=== PATIENT | male | born 1955 | race Caucasian/White ===

== ENCOUNTER 2018-08-17 11:20 | Day surgery (SDC) | payer MEDICARE, OTHER ==
[2018-07-27 10:47] LABS: HEMATOCRIT 42.4 % (37.9-51.0); MEAN CORPUSCULAR HEMOGLOBIN 26.5 pg (27.0-33.4); MEAN CORPUSCULAR HGB CONC 32.9 g/dL (32.0-36.0); MEAN CORPUSCULAR VOLUME 81 fl (80-97); PLATELET COUNT 260 10^3/uL (150-450); RED BLOOD COUNT 5.27 10^6/uL (4.35-5.55); RED CELL DISTRIBUTION WIDTH 15.8 % (11.5-14.0); WHITE BLOOD COUNT 10.7 10^3/uL (4.0-10.5)
[2018-07-27 10:52] LABS: APPEARANCE,URINE CLOUDY; BILIRUBIN,URINE NEGATIVE (NEGATIVE); COLOR,URINE YELLOW; GLUCOSE, URINE 50 mg/dL (NEGATIVE); KETONES,URINE NEGATIVE (NEGATIVE); LEUKOCYTE ESTERASE,URINE NEGATIVE (NEGATIVE); NITRITE,URINE NEGATIVE (NEGATIVE); PROTEIN,URINE NEGATIVE (NEGATIVE); URINE SPECIFIC GRAVITY 1.008; UROBILINOGEN,URINE NEGATIVE mg/dL (<2.0)
[2018-07-27 11:20] LABS: INTERNATIONAL RATION (INR) 0.94; PROTHROMBIN TIME 13.1 SEC (11.4-15.4)
[2018-07-27 11:21] LABS: PARTIAL THROMBOPLASTIN TIME 32.5 SEC (23.5-35.8)
--- NOTE | 2018-07-27 11:29 | RADIOLOGY REPORT (SQ) ---
EXAM DESCRIPTION: CHEST PA/LATERAL COMPLETED DATE/TIME: 07/27/2018 11:21 am REASON FOR STUDY: PRE-OP COMPARISON: 10/27/2013 EXAM PARAMETERS: NUMBER OF VIEWS: two views TECHNIQUE: Digital Frontal and Lateral radiographic views of the chest acquired. RADIATION DOSE: NA LIMITATIONS: none FINDINGS: LUNGS AND PLEURA: There is diffuse bilateral interstitial airspace disease. This appears to represent pulmonary fibrosis. There has been significant progression from 2013. Superimposed int erstitial pneumonitis or edema cannot be excluded. MEDIASTINUM AND HILAR STRUCTURES: No masses or contour abnormalities. HEART AND VASCULAR STRUCTURES: Heart normal size. No evidence for failure. BONES: No acute findings. HARDWARE: None in the chest. OTHER: No other significant finding. IMPRESSION: Probable pulmonary fibrosis. Acute superimposed interstitial edema or pneumonitis is th ought to be less likely but not excluded. There has been significant progression since 2013. TECHNICAL DOCUMENTATION: JOB ID: [id number] [employer]- All Rights Reserved Reading location - IP/workstation name: [email or web address]
--- NOTE | 2018-07-27 21:49 | EKG REPORT ---
SEVERITY:- ABNORMAL ECG - SINUS RHYTHM MULTIPLE ATRIAL PREMATURE COMPLEXES NONSPECIFIC INTRAVENTRICULAR CONDUCTION DELAY PROBABLE LEFT VENTRICULAR HYPERTROPHY : Confirmed by: Silva Pedro MD 27-Jul-2018 21:48:30
[~2018-08-17 11:20] MED LIST: CEFAZOLIN 1 GM/D5W RTU 1 GM/50 ML RTUPB IV PRN; CEFAZOLIN 2 GM/D5W RTU 2 GM/50 ML RTUPB IV PRN; FENTANYL CITRATE INJ/PF 100 MCG/2 ML AMPUL ONE; LACTATED RINGERS 1000 ML IV PRN; LIDOCAINE 0.5% INJ-PF (5 MG/ML) 50 ML SDV SUBCUT PRN; MIDAZOLAM 2 MG/2 ML INJ ONE; PROPOFOL INJ 200 MG/20 ML VIAL IV ONE
[2018-08-17] MEDS ORDERED: CEFAZOLIN 1 GM/D5W RTU 1 GM/50 ML RTUPB IV ONE (11:24)
[2018-08-17] MEDS ORDERED: ALBUTEROL SULFATE 0.083% NEB 2.5 MG/3 ML AMPUL NEB ONE (12:07)
[2018-08-17] MEDS ORDERED: BUPIVACAINE HCL 0.25% /EPINEPHRINE INJ/PF 30 ML SDV ONE (14:02)
[2018-08-17] MEDS ORDERED: SODIUM BICARBONATE 8.4% INJ 50 MEQ/50 ML DISP.SYRIN ONE (14:02)
[2018-08-17] MEDS ORDERED: LIDOCAINE 1% INJ-PF (10 MG/ML) 30 ML SDV ONE (14:02)
[2018-08-17] MEDS ORDERED: MORPHINE SULFATE 10 MG/ML INJ IV PRN (15:01)
[2018-08-17] MEDS ORDERED: PROMETHAZINE HCL INJ 25 MG/1 ML VIAL IV PRN ×2 (15:01)
[2018-08-17] MEDS ORDERED: MEPERIDINE HCL/PF INJ 25 MG/1 ML DISP.SYRIN IV PRN (15:01)
[2018-08-17] MEDS ORDERED: DIPHENHYDRAMINE HCL 50 MG/ML VIAL IV PRN (15:01)
[2018-08-17] MEDS ORDERED: ONDANSETRON HCL INJ/PF 4 MG/2 ML SDV IV PRN (15:01)
[2018-08-17] MEDS ORDERED: FENTANYL CITRATE INJ/PF 100 MCG/2 ML AMPUL IV PRN ×3 (15:01)
[2018-08-17] MEDS ORDERED: CEFAZOLIN INJ 1 GM VIAL ONE (15:32)
--- NOTE | 2018-08-17 15:34 | RADIOLOGY REPORT (SQ) ---
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 NUMBER OF VIEWS: One view. TECHNIQUE: A lateral radiographic image acquired of the lumbar spine. LIMITATIONS: None. FINDINGS: 2 images from fluoro show a neural stimulator with leads extending to the spine. IMPRESSION: Spinal stimulator battery exchange. Refer to operative note for further information. TECHNICAL DOCUMENTATION: JOB ID: [id number] [employer]- All Rights Reserved Reading location - IP/workstation name: [email or web address] ESTHER
--- NOTE | 2018-08-17 15:35 | RADIOLOGY REPORT (SQ) ---
EXAM DESCRIPTION: NO CHG FLUORO COMPLETED DATE/TIME: 08/17/2018 3:19 pm REASON FOR STUDY: SPINAL STIMULATOR REVISION BATTERY EXCHANGE ASST WITH FLUORO IN OR COMPARISON: None. FLUOROSCOPY TIME: 0 minutes recorder fluoro time 2 Images saved to PACS LIMITATIONS: None. PROCEDURE: Spinal stimulator battery exchange FINDINGS: Images document the procedure. IMPRESSION: Spinal stimulator battery exchange. Refer to operative note for further information. COMMENT: PQRS [id number]: Fluoroscopy time of the procedure is documented in the report. TECHNICAL DOCUMENTATION: JOB ID: [id number] [employer]- All Rights Reserved Reading location - IP/workstation name: [email or web address] ESTHER
[2018-08-17] MEDS ORDERED: HYDROCODONE/ACETAMINOPHEN 5-325 MG TABLET PO PRN (15:38)
[2018-08-17 16:37] VITALS: BP 153/69
--- NOTE | 2018-09-21 15:24 | OPERATIVE REPORT E ---
Operative Report NAME: SHANTA RIVERS : 1955 AGE: 63Y DATE OF SURGERY: 08/17/2018 ROOM: PREOPERATIVE DIAGNOSIS: END OF LIFE SPINAL CORD STIMULATOR BATTERY WITH NONFUNCTIONING SPINAL CORD STIMULATOR SYSTEM. POSTOPERATIVE DIAGNOSIS: END OF LIFE SPINAL CORD STIMULATOR BATTERY WITH NONFUNCTIONING SPINAL CORD STIMULATOR SYSTEM. OPERATION: REMOVE AND REPLACE PROGRAMMABLE RECHARGEABLE SPINAL CORD STIMULATOR BATTERY AND COMPLEX ANALYSIS AND PROGRAMMING. ESTIMATED BLOOD LOSS: Minimal. SURGEON: YOLIS KELSEY M.D. ANESTHESIA: MAC. COMPLICATIONS: None. INDICATIONS: End of life battery with history of pain relief from spinal cord stimulation. PROCEDURE: After obtaining informed consent, advising the patient of the risks and benefits including serious neurological and rebleeding, infection, and failure of the system to work properly following revision, he was taken to the operating room and placed comfortably in the prone position. Comfort was assessed visually and verbally. MAC anesthesia was administered. He was prepped with chlorhexidine with appropriate drying time, and then draped. The spinal cord stimulator system was evaluated under fluoroscopy for identification of lead placement and pulse generator placement. The prior surgical sites were readily visible from the surgical scars. The left gluteal region was then anesthetized with 1% lidocaine with bicarb over the previous surgical incision. Sharp and blunt dissection were performed down to the pulse generator. Hemostasis was obtained with electrocautery as necessary. The generator was removed easily from the pocket. The leads were disconnected. They were then connected to the trial stimulation system to assess the integrity of the leads and functionality. Satisfactory impedance was noted and connectivity was noted. The battery was then connected to the leads after testing the system. All hex nuts were secured. The capsule was slightly enlarged through excision of the capsule to facilitate placement of the generator. The capsule was then closed with running 2-0 Vicryl. The subcutaneous tissue was then closed with 3-0 inverted vertical mattress sutures using 3-0 Vicryl. The skin came together quite nicely for approximation. Dermabond tape followed by cement was placed. When this was dried, Telfa and Tegaderm were placed. He was then taken to the PACU for further postoperative care and monitoring. It should be noted that copious irrigation was utilized in between closure of each layer. DICTATING PHYSICIAN: YOLIS KELSEY M.D. BGEDIT [id number] PHY#: [id number] ID: [id number] JOB#: [id number] ACCT: [id number] cc:YOLIS KELSEY M.D. >
== END 2018-08-17 16:40 | disposition home or self-care (01) ==
LOC: OROUT 11:20
PROVIDERS: ATTEND Student in an Organized Health Care Education/Training Program
DX: M54.16 Radiculopathy, lumbar region (principal); M43.06 Spondylolysis, lumbar region; G89.4 Chronic pain syndrome; M51.27 Other intervertebral disc displacement, lumbosacral region; I10 Essential (primary) hypertension; J44.9 Chronic obstructive pulmonary disease, unspecified; F17.210 Nicotine dependence, cigarettes, uncomplicated; I25.10 Atherosclerotic heart disease of native coronary artery without angina pectoris; E11.9 Type 2 diabetes mellitus without complications; K21.9 Gastro-esophageal reflux disease without esophagitis; R06.02 Shortness of breath; Z79.899 Other long term (current) drug therapy; Z79.82 Long term (current) use of aspirin; Z79.891 Long term (current) use of opiate analgesic; Z99.81 Dependence on supplemental oxygen
CPT/HCPCS: 93005; 36415; 82962; 85027; 85610; 85730; 81001; 71046; 72020; 93010; 94640; 63688; C1820; J2250; J3490 ×3; J0690 ×2; J3010; J2704; A9270; 300

== ENCOUNTER 2019-11-03 11:35 | Emergency (ER) | payer MEDICARE, OTHER ==
[2019-11-03 12:34] LABS: ABSOLUTE BASOPHILS # (AUTO) 0.1 10^3/uL (0.0-0.2); ABSOLUTE LYMPHOCYTES (AUTO) 2.1 10^3/uL (0.5-4.7); ABSOLUTE MONOCYTES (AUTO) 1.2 10^3/uL (0.1-1.4); ABSOLUTE NEUT (AUTO) 15.8 10^3/uL (1.7-8.2); BASOPHILS % (AUTO) 0.5 % (0-2); EOSINOPHILS % (AUTO) 0.2 % (0-6); HEMATOCRIT 32.5 % (37.9-51.0); HEMOGLOBIN 10.7 g/dL (13.5-17.0); LYMPHOCYTES % (AUTO) 11.1 % (13-45); MEAN CORPUSCULAR HEMOGLOBIN 26.3 pg (27.0-33.4); MEAN CORPUSCULAR VOLUME 80 fl (80-97); MONOCYTES % (AUTO) 6.4 % (3-13); PLATELET COUNT 438 10^3/uL (150-450); RED BLOOD COUNT 4.08 10^6/uL (4.35-5.55); RED CELL DISTRIBUTION WIDTH 15.5 % (11.5-14.0); SEGMENTED NEUTROPHILS % (AUTO) 81.8 % (42-78); TOTAL CELLS COUNTED % (AUTO) 100 %; WHITE BLOOD COUNT 19.3 10^3/uL (4.0-10.5)
--- NOTE | 2019-11-03 13:01 | RADIOLOGY REPORT (SQ) ---
EXAM DESCRIPTION: CHEST SINGLE VIEW IMAGES COMPLETED DATE/TIME: 11/03/2019 12:23 pm REASON FOR STUDY: SOB COMPARISON: 07/27/2018 EXAM PARAMETERS: NUMBER OF VIEWS: One view. TECHNIQUE: Single frontal radiographic view of the chest acquired. RADIATION DOSE: NA LIMITATIONS: None. FINDINGS: LUNGS AND PLEURA: Low lung volumes and relative elevation of the left hemidiaphragm result ing in bronchovascular crowding. Otherwise grossly stable appearance of mixed interstitial and airsp yanelis opacities demonstrating and apical basilar gradient. No new focal consolidation. Small bilatera l pleural effusions. No pneumothorax. MEDIASTINUM AND HILAR STRUCTURES: No masses. Contour normal. HEART AND VASCULAR STRUCTURES: Heart normal in size. Normal vasculature. BONES: No acute findings. HARDWARE: Midline surgical changes. Partially imaged epidural stimulator leads. OTHER: No other significant finding. IMPRESSION: Low lung volumes with resultant bronchovascular crowding and compressive atelectasis of the lungs. This lends itself to the appearance of increased mixed interstitial and airspace opacitie s. Given the interval appearance of bilateral pleural effusions, pulmonary edema or infectious etiol ogies should be considered. TECHNICAL DOCUMENTATION: JOB ID: [id number] [email or web address]- All Rights Reserved Reading location - IP/workstation name: [email or web address]
[2019-11-03 13:07] LABS: ALBUMIN 3.5 g/dL (3.5-5.0); ALKALINE PHOSPHATASE 110 U/L (38-126); ASPARTATE AMINO TRANSFERASE 36 U/L (17-59); CARBON DIOXIDE 25 mmol/L (22-30); CREATINE KINASE 37 U/L (55-170); TOTAL PROTEIN 7.3 g/dL (6.3-8.2)
[2019-11-03 13:14] LABS: ANION GAP 9 (5-19); BILIRUBIN,TOTAL 0.8 mg/dL (0.2-1.3); BLOOD UREA NITROGEN 21 mg/dL (7-20); CALCIUM 9.3 mg/dL (8.4-10.2); CHLORIDE 94 mmol/L (98-107); GLUCOSE 142 mg/dL (75-110); POTASSIUM 5.1 mmol/L (3.6-5.0)
--- NOTE | 2019-11-03 13:20 | ER Document Report ---
ED General - General Chief Complaint: Shortness Of Breath Stated Complaint: SHORTNESS OF BREATH Primary Care Provider: MARII EVANGELISTA MD [Primary Care Provider] - Follow up as needed Notes: Patient is a 64-year-old male presenting to the emergency department chief complaint of shortness of breath. Patient states it started over the past 2 da ys. Patient reports coronary artery bypass graft procedure was performed at [facility] on 20 October. Patient states over the past 24 to 48 hours the shortness of breath has worsened. At time of presentation patient is tripoding breathing approximately 40 times a minute using accessory muscles. Patient denies the sensation of a fever. Patient states he is taking his medi cations appropriately. TRAVEL OUTSIDE OF THE [place] IN LAST 30 DAYS: No - HPI Onset: Yesterday Onset/Duration: Gradual, Worse Quality of pain: Fullness Severity: Mild Pain Level: 1 Associated symptoms: Nonproductive cough, Nausea, Shortness of breath Exacerbated by: Standing, Movement, Walking, Coughing, Deep breathing Relieved by: Denies Similar symptoms previously: Yes Recently seen / treated by doctor: Yes - Related Data Allergies/Adverse Reactions: No Known Allergies Allergy (Verified 07/27/18 10:47) Past Medical History - General Information source: Patient, [facility] Records - Social History Smoking Status: Former Smoker Cigarette use (# per day): Yes - Patient stopped smoking 2 weeks ago Chew tobacco use (# tins/day): No Frequency of alcohol use: None Drug Abuse: None Family History: Reviewed & Not Pertinent Patient has suicidal ideation: No Patient has homicidal ideation: No - Past Medical History Cardiac Medical History: Reports: Hx Coronary Artery Disease Denies: Hx Heart Attack, Hx Hypertension Pulmonary Medical History: Reports: Hx COPD Denies: Hx Asthma, Hx Bronchitis, Hx Pneumonia, Hx Tuberculosis Neurological Medical History: Denies: Hx Cerebrovascular Accident, Hx Seizures Musculoskeletal Medical History: Reports Hx Arthritis - R knee, hands Past Surgical History: Reports: Hx Cardiac Surgery, Hx Coronary Artery Bypass Graft - Immunizations Hx Diphtheria, Pertussis, Tetanus Vaccination: No Hx Pneumococcal Vaccination: 10/28/13 Review of Systems - Review of Systems Constitutional: No symptoms reported EENT: No symptoms reported Cardiovascular: No symptoms reported Respiratory: See HPI Gastrointestinal: No symptoms reported Genitourinary: No symptoms reported Male Genitourinary: No symptoms reported Musculoskeletal: No symptoms reported Skin: No symptoms reported Hematologic/Lymphatic: No symptoms reported Neurological/Psychological: No symptoms reported Physical Exam - Vital signs Vitals: Pulse Ox 94 11/03/19 11:35 - Notes Notes: PHYSICAL EXAMINATION: GENERAL: Patient is a 64-year-old male appearing older than stated age in moderate respiratory distress HEAD: Atraumatic, normocephalic. EYES: Pupils equal round and reactive to light, extraocular movements intact, sclera anicteric, conjunctiva are moderately injected. ENT: nares patent, oropharynx clear without exudates. Dry mucous membranes. NECK: Normal range of motion, supple without lymphadenopathy, no appreciable JVD LUNGS: Crackles and rhonchi bilaterally, poor inspiratory expiratory effort, incision scar is well-healing HEART: Tachycardic rate and rhythm without murmurs ABDOMEN: Soft, nontender, normal bowel sounds. No guarding, no rebound. No masses appreciated. EXTREMITIES: Active full range of motion, no pitting or edema. No cyanosis. 2+ pulses x4 NEUROLOGICAL: No focal neurological deficits. Moves all extremities spontaneously and on command. SKIN: Warm, Dry, and intact. Normal turgor, no rashes or lesions noted. Course - Re-evaluation Re-evalutation: 11/03/19 15:22 Patient has been reevaluated multiple times while in emergency department. 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 Patient has been found to have slightly elevated troponin which is not surprising considering the recent cardiac surgery however patient has a BNP of greater than 4000 and white count of greater than 19,000 patient has bilateral pleural effusions here again not surprisingly but patient continues to have increased work of breathing. I did discuss the case with the hospitalist and their recommendation is patient should go back to the hospital at which he had his surgery done. I did speak with Dr. Coates cardiothoracic surgery at [facility] he is in agreement with transfer of the patient back to his facility. Patient will receive Lasix 40 mg IV, Rocephin 1 g IV and azithromycin 500 mg IV. Patient is being COVID tested. - Vital Signs Vital signs: Temp Pulse Resp BP Pulse Ox 94 11/03/19 11:35 - Laboratory Result Diagrams: 11/03/19 12:08 11/03/19 12:08 Laboratory results interpreted by me: 11/03/19 11/03/19 11/03/19 12:08 12:08 12:08 WBC 19.3 H RBC 4.08 L Hgb 10.7 L Hct 32.5 L MCH 26.3 L RDW 15.5 H Lymph % (Auto) 11.1 L Absolute Neuts (auto) 15.8 H Seg Neutrophils % 81.8 H Sodium 128.4 L Potassium 5.1 H Chloride 94 L BUN 21 H Glucose 142 H Creatine Kinase 37 L NT-Pro-B Natriuret Pep 4260 H Urine Glucose (UA) 11/03/19 12:45 WBC RBC Hgb Hct MCH RDW Lymph % (Auto) Absolute Neuts (auto) Seg Neutrophils % Sodium Potassium Chloride BUN Glucose Creatine Kinase NT-Pro-B Natriuret Pep Urine Glucose (UA) 50 H - Diagnostic Test Radiology reviewed: Reports reviewed - EKG Interpretation by Me EKG shows normal: Sinus rhythm Rate: Tachycardia When compared to previous EKG there are: Changes noted - EKG is interpreted by me shows sinus tachycardia rate of [address] depression in the lateral leads Q waves in the inferior leads there is signs of LVH and early transition. This is all new compared to prior EKG of July 27, 2018. Critical Care Note - Critical Care Note Total time excluding time spent on procedures (mins): 40 Comments: Please allow 40 minutes of critical care time spent obtaining history from patient or surrogate, discussions with consultants, development of treatment plan with patient or surrogate, evaluation of patient's response to treatment, examination of patient. This also includes ordering and reviewing laboratory, EKG and / or radiologic studies, performing and reassessing treatments and interventions as well as reviewing previous visits and old charts. This is exclusive of separately billable procedures. Discharge - Discharge Clinical Impression: Elevated troponin, SOB (shortness of breath), Chronic back pain Leukocytosis Qualifiers: Leukocytosis type: unspecified Qualified Code(s): D72.829 - Elevated white blood cell count, unspecified Pneumonia Qualifiers: Pneumonia type: due to unspecified organism Laterality: unspecified laterality Lung location: unspecified part of lung Qualified Code(s): J18.9 - Pneumonia, unspecified organism Condition: Fair Disposition: [facility] Referrals: MARII EVANGELISTA MD [Primary Care Provider] - Follow up as needed
[2019-11-03 13:22] LABS: CREATINE KINASE MB 1.79 ng/mL (<4.55)
[2019-11-03 13:26] LABS: TROPONIN I 0.125 ng/mL
[2019-11-03 13:40] LABS: APPEARANCE,URINE CLEAR; BILIRUBIN,URINE NEGATIVE (NEGATIVE); COLOR,URINE YELLOW; GLUCOSE, URINE 50 mg/dL (NEGATIVE); KETONES,URINE NEGATIVE (NEGATIVE); LEUKOCYTE ESTERASE,URINE NEGATIVE (NEGATIVE); NITRITE,URINE NEGATIVE (NEGATIVE); PROTEIN,URINE NEGATIVE (NEGATIVE); URINE SPECIFIC GRAVITY 1.009; UROBILINOGEN,URINE NEGATIVE mg/dL (<2.0)
[2019-11-03] MEDS ORDERED: FUROSEMIDE INJ/PF 40 MG/4 ML SDV IV ONE (14:02)
[2019-11-03] MEDS ORDERED: AZITHROMYCIN INJ 500 MG VIAL IV ONE (14:03)
[2019-11-03] MEDS ORDERED: CEFTRIAXONE 1 GM/D5W RTU 1 GM/50 ML RTUPB IV ONE (14:30)
[2019-11-03] MEDS ORDERED: MORPHINE SULFATE 10 MG/ML INJ IV ONE (15:41)
[2019-11-03 17:11] VITALS: BP 103/65
--- NOTE | 2019-11-03 19:31 | EKG REPORT ---
SEVERITY:- ABNORMAL ECG - SINUS TACHYCARDIA NONSPECIFIC INTRAVENTRICULAR CONDUCTION DELAY BORDERLINE ST DEPRESSION, INFERIOR LEADS : Confirmed by: iSlva Pedro MD 03-Nov-2019 19:31:13
== END 2019-11-03 17:00 | disposition short-term general hospital (02) ==
LOC: ER 11:35
DX: J18.9 Pneumonia, unspecified organism (principal); J44.0 Chronic obstructive pulmonary disease with (acute) lower respiratory infection; R79.89 Other specified abnormal findings of blood chemistry; M54.9 Dorsalgia, unspecified; G89.29 Other chronic pain; R06.02 Shortness of breath; R05 Cough; R11.0 Nausea; I25.10 Atherosclerotic heart disease of native coronary artery without angina pectoris; Z95.1 Presence of aortocoronary bypass graft; Z87.891 Personal history of nicotine dependence; R00.0 Tachycardia, unspecified; Z20.828 Contact with and (suspected) exposure to other viral communicable diseases
CPT/HCPCS: 93005; 99291; 96372; 96375; 96365; 36415; 87040; 82553; 82550; 83605; 85025; 87077; 80053; 81001; 84484; 87186; 87150 ×26; 83880; 71045; 93010; U0003; J1940; J2270; J0456; J0696; C9803; 87635